=== PATIENT | male | born 1985 | race Caucasian/White ===

== ENCOUNTER 2017-08-25 23:53 | Emergency (ER) | payer OTHER, MEDICAID | END 2017-08-26 05:57 | disposition home or self-care (01) | LOC: M ED 23:53 | DX: S90.852A Superficial foreign body, left foot, initial encounter (principal); W45.8XXA Other foreign body or object entering through skin, initial encounter; Y92.018 Other place in single-family (private) house as the place of occurrence of the external cause; Y93.89 Activity, other specified; Y99.8 Other external cause status; Z91.030 Bee allergy status | CPT/HCPCS: 99283 ==

== ENCOUNTER 2024-07-19 18:04 | Emergency (ER) | payer OTHER ==
[~2024-07-19] VITALS: Ht 170.2 cm; Wt 73.0 kg
[2024-07-19 20:50] VITALS: BP 105/58; TEMP 97.9; O2SAT 99
== END 2024-07-19 23:14 | disposition home or self-care (01) ==
LOC: M ED 18:04
DX: S06.309A Unspecified focal traumatic brain injury with loss of consciousness of unspecified duration, initial encounter (principal); S00.03XA Contusion of scalp, initial encounter; X58.XXXA Exposure to other specified factors, initial encounter; Y92.9 Unspecified place or not applicable; Y93.9 Activity, unspecified; Y99.0 Civilian activity done for income or pay; H05.221 Edema of right orbit; M50.322 Other cervical disc degeneration at C5-C6 level; M50.323 Other cervical disc degeneration at C6-C7 level